=== PATIENT | male | born 1990 | race Caucasian/White ===

== ENCOUNTER 2016-11-14 00:14 | Emergency (ER) | payer SELFPAY ==
[2016-11-14] MEDS ORDERED: MORPHINE SULFATE 10 MG/ML INJ IV ONE (01:46)
[2016-11-14] MEDS ORDERED: ONDANSETRON HCL INJ/PF 4 MG/2 ML SDV IV ONE (01:47)
--- NOTE | 2016-11-14 01:48 | ER Document Report ---
ED GI/ - General Chief Complaint: Groin Pain Stated Complaint: PROSTATE/RECTUM PAIN Time Seen by Provider: 11/14/16 01:29 Notes: Patient is a 26 year old male that comes to the ED for chief complaint of rectal pain. He states he was evaluated in [place] and diagnosed with prostatitis, states he was given a dose of Rocephin and placed on doxycycline, states he has been taking this but his pain seems even worse. He states he does have some pain with bowel movement. He denies fevers, drainage from the area, denies penile discharge, denies dysuria. He states he had negative gonorrhea and chlamydia testing. Patient denies any daily medications, past medical history of appendectomy. TRAVEL OUTSIDE OF THE [place] IN LAST 30 DAYS: No Past Medical History - General Information source: Patient - Social History Smoking Status: Never Smoker Frequency of alcohol use: Occasional Drug Abuse: None Lives with: Spouse/Significant other Family History: Reviewed & Not Pertinent Patient has suicidal ideation: No Patient has homicidal ideation: No - Medical History Medical History: Negative Renal/ Medical History: Denies: Hx Peritoneal Dialysis Past Surgical History: Reports: Hx Appendectomy - Immunizations Immunizations up to date: Yes Hx Diphtheria, Pertussis, Tetanus Vaccination: Yes Review of Systems - Review of Systems Constitutional: No symptoms reported EENT: No symptoms reported Cardiovascular: No symptoms reported Respiratory: No symptoms reported Gastrointestinal: See HPI Genitourinary: See HPI Male Genitourinary: See HPI Musculoskeletal: No symptoms reported Skin: No symptoms reported Hematologic/Lymphatic: No symptoms reported Neurological/Psychological: No symptoms reported Physical Exam - Vital signs Vitals: Temp Pulse Resp BP Pulse Ox 98.3 F 80 16 102/67 98 11/14/16 00:30 11/14/16 00:30 11/14/16 00:30 11/14/16 00:30 11/14/16 00:30 Interpretation: Normal - General General appearance: Appears well, Alert In distress: None - Patient appears to be mildly uncomfortable but is not in any distress - HEENT Head: Normocephalic, Atraumatic Eyes: Normal Pupils: PERRL - Respiratory Respiratory status: No respiratory distress Chest status: Nontender Breath sounds: Normal. No: Decreased air movement, Wheezing Chest palpation: Normal - Cardiovascular Rhythm: Regular. No: Tachycardia Heart sounds: Normal auscultation, S1 appreciated, S2 appreciated Murmur: No - Abdominal Inspection: Normal Distension: No distension Bowel sounds: Normal Tenderness: Nontender Organomegaly: No organomegaly - Rectal Hemorrhoids: Other - Examination shows a tender nonthrombosed hemorrhoid externally, also has a significant amount of pain at the 6 o'clock position just inside the anal sphincter, there is inflammation around the anal sphincter and in general area, no induration or fluctuance noted, prostate exam is completely normal and nontender Prostate: Normal. No: Tender - Back Back: Normal, Nontender. No: Tender - Extremities General upper extremity: Normal inspection, Nontender, Normal color, Normal ROM , Normal temperature General lower extremity: Normal inspection, Nontender, Normal color, Normal ROM , Normal temperature, Normal weight bearing. No: Isabel's sign - Neurological Neuro grossly intact: Yes Cognition: Normal Orientation: AAOx4 Charline Coma Scale Eye Opening: Spontaneous [place] Coma Scale Verbal: Oriented [place] Coma Scale Motor: Obeys Commands Char[place] Coma Scale Total: 15 Speech: Normal Motor strength normal: LUE, RUE, LLE, RLE Sensory: Normal - Psychological Associated symptoms: Normal affect, Normal mood - Skin Skin Temperature: Warm Skin Moisture: Dry Skin Color: Normal Course - Re-evaluation Re-evalutation: Examination is consistent with rectal pain, hemorrhoids, possible fissure, questionable for abscess internally. No evidence of prostatitis. Discussed with Dr. Anaya, recommend CT to rule out abscess. Patient states agreement with this. Mild leukocytosis with no shift, no fever, chemistry unremarkable, CAT scan imaging shows no free air or evidence of developing abscess. Discussed results with patient, patient will be treated for inflammation to the area with possible fissure, referred to surgical clinic, discussed return precautions, patient states understanding and agreement. - Vital Signs Vital signs: Temp Pulse Resp BP Pulse Ox 98.3 F 62 16 115/75 99 11/14/16 00:30 11/14/16 04:35 11/14/16 04:35 11/14/16 04:35 11/14/16 04:35 - Laboratory Result Diagrams: 11/14/16 02:00 11/14/16 02:00 Laboratory results interpreted by me: 11/14/16 02:00 WBC 11.0 H Discharge - Discharge Clinical Impression: Rectal pain Disposition: HOME, SELF-CARE Additional Instructions: No abscess or surgical abnormality is seen at this time. Use the prescribed medication, follow up with the surgical clinic as referred if symptoms continue. Return to the ED for any concerning or worsening symptoms - swelling or pain of the scrotum, fever, or any other concerning symptoms. Prescriptions: Lidocaine/Hydrocortisone AC [Lidocaine-Hc 3-1% Cream] 7 gm RC ASDIR PRN #1 tub PRN Reason: Phenylephrine HCl [Anusol Suppository] 1 supp.rect [place] BID #[id number] supp.rect Forms: Return to Work Referrals: [facility] [Provider Group] - Follow up as needed
[2016-11-14 02:12] LABS: ABSOLUTE BASOPHILS # (AUTO) 0.1 10^3/uL (0.0-0.2); ABSOLUTE EOSINOPHILS # (AUTO) 0.1 10^3/uL (0.0-0.6); ABSOLUTE MONOCYTES (AUTO) 0.7 10^3/uL (0.1-1.4); BASOPHILS % (AUTO) 0.7 % (0-2); EOSINOPHILS % (AUTO) 1.2 % (0-6); HEMATOCRIT 43.3 % (37.9-51.0); HEMOGLOBIN 14.8 g/dL (13.5-17.0); HGB HCT DIFFERENCE 1.1; LYMPHOCYTES % (AUTO) 18.6 % (13-45); MEAN CORPUSCULAR HEMOGLOBIN 29.2 pg (27.0-33.4); MEAN CORPUSCULAR HGB CONC 34.2 g/dL (32.0-36.0); MEAN CORPUSCULAR VOLUME 85 fl (80-97); MONOCYTES % (AUTO) 6.7 % (3-13); RED BLOOD COUNT 5.08 10^6/uL (4.35-5.55); RED CELL DISTRIBUTION WIDTH 13.1 % (11.5-14.0); SEGMENTED NEUTROPHILS % (AUTO) 72.8 % (42-78)
[2016-11-14 02:28] LABS: ANION GAP 14 (5-19); BLOOD UREA NITROGEN 20 mg/dL (7-20); CALCIUM 9.7 mg/dL (8.4-10.2); CARBON DIOXIDE 22 mmol/L (22-30); CHLORIDE 104 mmol/L (98-107); CREATININE RESULT 0.84 mg/dL (0.52-1.25); GLUCOSE 93 mg/dL (75-110); POTASSIUM 4.5 mmol/L (3.6-5.0); SODIUM 140.2 mmol/L (137-145)
--- NOTE | 2016-11-14 03:14 | RADIOLOGY REPORT (SQ) ---
EXAM DESCRIPTION: CT ABD/PELVIS WITH IV ONLY COMPLETED DATE/TIME: 11/14/2016 2:59 am REASON FOR STUDY: ? rectal abscess COMPARISON: None. TECHNIQUE: CT scan of the abdomen and pelvis performed using helical scanning technique with dynamic intravenous contrast injection. No oral contrast. Images reviewed with lung, soft tissue, and bone windows. Reconstructed coronal and sagittal MPR images reviewed. Delayed images for evaluation of the urinary system also acquired. All images stored on PACS. All CT scanners at this facility use dose modulation, iterative reconstruction, and/or weight based d osing when appropriate to reduce radiation dose to as low as reasonably achievable (ALARA). [facility]: Dose Right [facility]: CareDose [facility]: Dose Right [facility]: Teradose 4D [facility]: PayParade Pictures CONTRAST TYPE AND DOSE: contrast/concentration: Isovue 370.00 mg/ml; Total Contrast Delivered: 82.0 ml; Total Saline Delivered: 68.0 ml RENAL FUNCTION: Creatinine 0.8 RADIATION DOSE: Up-to-date CT equipment and radiation dose reduction techniques were employed. CTDIv ol: 6.3 - 9.0 mGy. DLP: 834 mGy-cm.. LIMITATIONS: No intestinal/oral contrast. FINDINGS: LOWER CHEST: No significant findings. No nodules or infiltrates. LIVER: Normal size. No masses or dilated ducts. SPLEEN: Normal size. No focal lesions. PANCREAS: No masses. No significant calcifications. No adjacent inflammation or peripancreatic fluid collections. Pancreatic duct not dilated. GALLBLADDER: No identified stones by CT criteria. No inflammatory changes to suggest cholecystitis. ADRENAL GLANDS: No significant masses or asymmetry. RIGHT KIDNEY AND URETER: No solid masses. No significant calcifications. No hydronephrosis or hyd roureter. LEFT KIDNEY AND URETER: No solid masses. No significant calcifications. No hydronephrosis or hydr oureter. AORTA AND VESSELS: No aneurysm. No dissection. Renal arteries, SMA, celiac without stenosis. RETROPERITONEUM: No retroperitoneal adenopathy, hemorrhage or masses. BOWEL AND PERITONEAL CAVITY: No masses or inflammatory changes. No free fluid or peritoneal masses. No evidence of significant perirectal abscess, as queried. APPENDIX: Surgically absent. PELVIS: No mass or free fluid. Normal bladder. ABDOMINAL WALL: No masses. No hernias. BONES: No significant or acute findings. OTHER: No other significant finding. IMPRESSION: NO SIGNIFICANT OR ACUTE FINDING IN THE ABDOMEN OR PELVIS ON CT SCAN WITH IV CONTRAST. TECHNICAL DOCUMENTATION: JOB ID: [id number] Quality ID # [id number]: Final reports with documentation of one or more dose reduction techniques (e.g., Au tomated exposure control, adjustment of the mA and/or kV according to patient size, use of iterative reconstruction technique) 2010 [employer]- All Rights Reserved
[2016-11-14] MEDS ORDERED: LIDOCAINE 2% URO-JET 5 ML KIT MM ONE (04:31)
[2016-11-14 04:36] VITALS: BP 115/75
== END 2016-11-14 04:36 | disposition home or self-care (01) ==
LOC: ER 00:14 → EDBD 00:14 → ER 04:36
DX: K62.89 Other specified diseases of anus and rectum (principal); R10.30 Lower abdominal pain, unspecified
CPT/HCPCS: 99284; 96374; 96375; 36415; 85025; 80048; 74177; J2270; J2405; J3490